=== PATIENT | female | born 2000 | race Two or more races ===

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

== ENCOUNTER 2020-03-05 21:44 | Emergency (ER) | payer SELFPAY ==
[~2020-03-05] VITALS: Ht 172.7 cm; Wt 77.1 kg
[~2020-03-05 21:44] MED LIST changes: +OMEPRAZOLE20 M3 ORAL; +ROBAXIN-500MG ORAL; +TYLENOL EXTRA500 MG ORAL
[2020-03-05] MEDS ORDERED: Ketorolac 30mg Inj IV ONE (22:00)
--- NOTE | 2020-03-05 22:00 | NUR ---
ED Nurse Note: Pt assisted by wheelchair to ED 1 c/o epigastic pain since 3 days ago. Pt stated hx of gastritis. Pt admitted to eating chili and spicy food and pain occured shortly after. Pt denies n/v/d. ambulated to bed with steady gait. changed into gown; attached to monitor. patient ao4 with no acute distress. vitals stable. all safety measures met.
--- NOTE | 2020-03-05 22:00 | Emergency Room Report ---
History of Present Illness General Chief Complaint: Abdominal Pain Source: Patient Present Illness HPI This a 19-year-old female with no past medical history patient presents with complaint abdominal pain. Pain been on and off for the last few days. Worse with eating. Pain is right upper quadrant and epigastric. Radiating to the back. It was worse today. Is been ongoing for couple of hours now. Has nausea but no vomiting. By time I saw her pain is pretty much resolved. No fever chills but no trauma. No diarrhea. No urinary complaint. Said that she has a history of gastritis. 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 Patient History Past Medical History: none, see triage record, old chart reviewed Past Surgical History: none Pertinent Family History: none Social History: Denies: smoking Last Menstrual Period: 02/2020 Now: No Immunizations: UTD Reviewed Nursing Documentation: PMH: Agreed; PSxH: Agreed Nursing Documentation-PMH Hx Asthma: Yes Hx Gastrointestinal Problems: Yes - GASTRITIS Review of Systems Eye: Denies: eye pain, blurred vision ENT: Denies: ear pain, nose congestion, throat swelling Respiratory: Denies: cough, shortness of breath Cardiovascular: Denies: chest pain, palpitations Gastrointestinal: Reports: abdominal pain, nausea; Denies: diarrhea, vomiting Musculoskeletal: Denies: back pain, joint pain Skin: Denies: rash Neurological: Denies: headache, numbness Endocrine: Denies: increased thirst, increased urine Hematologic/Lymphatic: Denies: easy bruising All Other Systems: negative except mentioned in HPI Physical Exam Vital Signs Date Time Temp Pulse Resp B/P (MAP) Pulse Ox O2 Delivery O2 Flow Rate FiO2 03/05/20 21:48 97.9 76 14 117/80 (92) 100 Room Air Vitals normal Sp02 EP Interpretation: reviewed, normal General Appearance: well appearing, no apparent distress, alert Head: normocephalic, atraumatic Eyes: bilateral eye PERRL, bilateral eye EOMI ENT: hearing grossly normal, normal pharynx Neck: full range of motion, supple, no meningismus Respiratory: chest non-tender, lungs clear, normal breath sounds Cardiovascular #1: regular rate, rhythm, no murmur Gastrointestinal: normal bowel sounds, non tender, no mass, no organomegaly, no bruit, non-distended Musculoskeletal: back normal, normal range of motion, gait/station normal Psychiatric: mood/affect normal Medical Decision Making Diagnostic Impression: Primary Impression: UTI (urinary tract infection) Qualified Codes: N30.00 - Acute cystitis without hematuria Additional Impression: Epigastric abdominal pain ER Course Patient presents with epigastric abdominal pain. This is probably a peptic ulcer disease. No evidence of gallstone or acute abdomen. She is pain-free now. Urine does show urinary tract infection. No ectopic . Will discharge home. CT/MRI/US Diagnostic Results CT/MRI/US Diagnostic Results : Imaging Test Ordered: Ultrasound abdominal Impression Negative per radiologist Last Vital Signs Date Time Temp Pulse Resp B/P (MAP) Pulse Ox O2 Delivery O2 Flow Rate FiO2 03/05/20 21:48 97.9 76 14 117/80 (92) 100 Room Air Status: improved Disposition: HOME, SELF-CARE Condition: Improved Scripts Omeprazole (OMEPRAZOLE) 40 Mg Capsule.dr 40 MG ORAL TWICE A DAY, #30 CAP Prov: Mitch Martin MD 03/05/20 Cephalexin* (KEFLEX*) 500 Mg Capsule 500 MG ORAL TID, #21 CAP Prov: Mitch Martin MD 03/05/20 Additional Instructions: Follow-up with your doctor in 7 days. You may need referral to see a filter operator if symptoms continue. Return if symptoms worsen. Mitch Martin MD Mar 05, 2020 22:00
[2020-03-05 22:10] VITALS: BP 117/80
--- NOTE | 2020-03-05 22:10 | NUR ---
ED Nurse Note: iv access established. blood and urine collected; sent down to lab.
[2020-03-05 22:25] LABS: APPEARANCE,URINE SLIGHTLY CLOUDY; BASOPHILS % (AUTO) 1.2 % (0.0-2.0); BILIRUBIN, URINE NEGATIVE (NEGATIVE); COLOR,URINE PALE YELLOW; EOSINOPHILS % (AUTO) 1.9 % (0.0-3.0); GLUCOSE, URINE (UA) NEGATIVE (NEGATIVE); HEMATOCRIT 38.8 % (37.0-47.0); HEMOGLOBIN 13.5 G/DL (12.0-16.0); KETONES,URINE NEGATIVE (NEGATIVE); LEUKOCYTE ESTERASE ,URINE 2+ (NEGATIVE); LYMPHOCYTES % (AUTO) 28.9 % (20.0-45.0); MEAN CORPUSCULAR VOLUME 91 FL (80-99); NITRITE,URINE NEGATIVE (NEGATIVE); PH,URINE 7 (4.5-8.0); PLATELET COUNT 262 K/UL (150-450); PROTEIN,URINE NEGATIVE (NEGATIVE); RED BLOOD COUNT 4.27 M/UL (4.20-5.40); RED CELL DISTRIBUTION WIDTH 12.5 % (11.6-14.8); UROBILINOGEN,URINE NORMAL MG/DL (0.0-1.0)
--- NOTE | 2020-03-05 22:27 | NUR ---
ED Nurse Note: US at bedside for imaging.
[2020-03-05 22:38] LABS: ANION GAP 8 mmol/L (5-15); BLOOD UREA NITROGEN 13 mg/dL (7-18); CALCIUM 8.8 MG/DL (8.5-10.1); CARBON DIOXIDE 29 MMOL/L (21-32); CHLORIDE 104 MMOL/L (98-107); POTASSIUM 3.3 MMOL/L (3.5-5.1); SODIUM 141 MMOL/L (136-145)
[2020-03-05 22:42] LABS: ALANINE AMINOTRANSFERASE 23 U/L (12-78); ALBUMIN/GLOBULIN RATIO 1.5 (1.0-2.7); ALKALINE PHOSPHATASE 63 U/L (46-116); ASPARTATE AMINO TRANSFERASE 16 U/L (15-37); BILIRUBIN,TOTAL 0.2 MG/DL (0.2-1.0)
[2020-03-05] MEDS ORDERED: cefTRIAXone 1 GM in NS 55 ML IVPB ONE (22:45)
[2020-03-05] MEDS ORDERED: Pantoprazole Inj IVP ONE (22:45)
[2020-03-05] MEDS ORDERED: OMEPRAZOLE40 M1 ORAL (23:01)
[2020-03-05] MEDS ORDERED: CEPHALEXIN500 MG ORAL (23:01)
[2020-03-05 23:14] VITALS: BP 109/73
--- NOTE | 2020-03-05 23:14 | NUR ---
ER DISCHARGE NOTE: Patient is cleared to be discharged per ERMD, pt is aox4, on room air, with stable vital signs. pt was given dc and prescription instructions, pt was able to verbalize understanding, pt id band and iv site removed without complications. pt is able to ambulate with steady gait. pt took all belongings.
--- NOTE | 2020-03-05 23:43 | Diagnostic Imaging Report ---
EXAM: US Abdomen Limited, Right Upper Quadrant CLINICAL HISTORY: ABD PAIN TECHNIQUE: Real-time ultrasound of the right upper quadrant with image documentation. COMPARISON: No relevant prior studies available. FINDINGS: Liver: Unremarkable. No mass. No intrahepatic bile duct dilation. Gallbladder: Unremarkable. No gallstones. Common bile duct: Unremarkable as visualized. No stones. No dilation. Pancreas: Unremarkable as visualized. Right kidney: Unremarkable. No stones. No solid mass. No hydronephrosis. IMPRESSION: No acute right upper quadrant findings.
== END 2020-03-05 23:15 | disposition home or self-care (01) ==
LOC: EMR 22:15
DX: N30.00 Acute cystitis without hematuria (principal); R10.13 Epigastric pain; Z88.2 Allergy status to sulfonamides
CPT/HCPCS: 36415; 76705; 80053; 81003; 81025; 83690; 85025; 87086; 96361; 96365; 96375; 99284; C9113; J0696; J1885; J2405; J7030